=== PATIENT | female | born 1945 | race Caucasian/White ===

== ENCOUNTER → 2016-05-31 | Outpatient (CLI) | payer OTHER ==
[2016-05-31 16:02] LABS: ANION GAP 5 MEQ/L (8-16); BLOOD UREA NITROGEN 18 MG/DL (7-18); CALCIUM LEVEL 8.5 MG/DL (8.8-10.2); CARBON DIOXIDE LEVEL 28 MEQ/L (21-32); CHLORIDE LEVEL 111 MEQ/L (98-107); CREATININE FOR GFR 0.77 MG/DL (0.55-1.02); GLOMERULAR FILTRATION RATE > 60.0 (>39); GLUCOSE, FASTING 85 MG/DL (83-110); POTASSIUM SERUM 4.4 MEQ/L (3.5-5.1); SODIUM LEVEL 144 MEQ/L (136-145)
== END ==
LOC: M LAB 15:07
PROVIDERS: ATTEND Physician Assistant
DX: G35 Multiple sclerosis (principal)

== ENCOUNTER → 2016-06-02 | Outpatient (CLI) | payer OTHER ==
--- NOTE | 2016-06-05 05:43 | REP ---
MRI BRAIN WITHOUT AND WITH CONTRAST: HISTORY: Multiple sclerosis. CONTRAST: ProHance 16 mL. Areas of increased signal intensity on T2-weighted images are present in the periventricular and subcortical white matter and bobby. There is no intraparenchymal hemorrhage, infarct, mass or midline shift. There is no abnormal enhancement. The ventricular system is normal in appearance. The cortical sulci are dilated consistent with minimal volume loss. There is no extracerebral collection. The sinuses are clear. IMPRESSION: There are areas of increased signal intensity in the periventricular and subcortical white matter. This most likely represents small vessel ischemic disease, however, the possibility of atypical demyelinating disease can not be excluded. Signed by Seamus Mancia MD 06/05/2016 08:24 A
--- NOTE | 2016-06-05 05:53 | REP ---
MRI CERVICAL SPINE WITHOUT AND WITH CONTRAST: HISTORY: Multiple sclerosis. CONTRAST: ProHance 16 mL. A small central disc protrusion is present at the C3-4 level. There is minimal effacement of the thecal sac without spinal cord compression. Bilateral uncinate process hypertrophy is present. This produces minimal narrowing of the C3 neural foramina. A disc bugle with associated osteophyte formation is present at the C4-5 level. There is moderate effacement of the thecal sac without spinal cord compression. Bilateral uncinate process hypertrophy is present. This produces moderate narrowing of the C4 neural foramina. A disc bulge with associated osteophyte formation is present at the C5-6 level. There is minimal spinal cord compression. Bilateral uncinate process hypertrophy is present. This produces moderate narrowing of the C5 neural foramina. A disc bulge with associated osteophyte formation is present at the C6-7 level. There is minimal effacement of the thecal sac without spinal cord compression. Bilateral uncinate process hypertrophy is present. This produces moderate narrowing of the C6 neural foramina. A disc bulge is present at the T2-3 level. There is minimal effacement of the thecal sac without spinal cord compression. The neural foramina are patent on sagittal images. There is no other disc bulge or herniation. The remaining neural foramina are patent. The spinal cord is normal in signal intensity. There is no intradural extramedullary lesion. There is no abnormal enhancement. The C4-5 through C6-7 intervertebral discs are decreased in height consistent with disc degeneration. A 1.5 cm focus of increased signal intensity on T2-weighted images is present in the right thyroid lobe. This most likely represents a cyst. IMPRESSION: 1. There is cervical spondylosis at the C3-4 through C6-7 levels most significant at the C5-6 level where there is minimal spinal cord compression. 2. There is a 1.5 cm focus of increased signal intensity in the right thyroid lobe. This most likely represents a cyst. Ultrasound may be helpful for further evaluation. Signed by Seamus Mancia MD 06/05/2016 08:24 A
== END ==
LOC: M RAD 15:07
PROVIDERS: ATTEND Physician Assistant
DX: G35 Multiple sclerosis (principal); M43.02 Spondylolysis, cervical region
CPT/HCPCS: 70553; 72156; A9576

== ENCOUNTER → 2016-06-12 | Outpatient (CLI) | payer OTHER ==
--- NOTE | 2016-06-12 13:59 | REP ---
MRI THORACIC SPINE WITHOUT AND WITH CONTRAST: HISTORY: Multiple sclerosis. CONTRAST: ProHance 18 mL. A small central disc protrusion is present at the T5-6 level. There is minimal effacement of the thecal sac without spinal cord compression. The T5 neural foramina are patent. A small central disc protrusion is present at the T6-7 level. There is minimal effacement of the thecal sac without spinal cord compression. The T6 neural foramina are patent. A small central disc protrusion is present at the T7-8 level. There is minimal effacement of the thecal sac without spinal cord compression. The T7 neural foramina are patent. A small central disc protrusion is present at the T8-9 level. There is minimal effacement of the thecal sac without spinal cord compression. The T8 neural foramina are patent. A disc bulge is present at the T12-L1 level. There is minimal effacement of the thecal sac without spinal cord compression. The T12 neural foramina are patent. There is no other disc bulge or herniation. The remaining neural foramina are patent. The spinal cord is normal in signal intensity. There is no intradural extramedullary lesion. Nerve root sleeve diverticula or perineural cysts are present in the mid and lower thoracic spine. There is no abnormal enhancement. Increased signal intensity on T2-weighted images is present in the endplates of several mid and lower thoracic vertebral bodies. This represents degenerative change. IMPRESSION: 1. Small disc protrusions at the T5-6 through T8-9 levels without spinal cord compression. 2. Disc bulge at the T12-L1 level without spinal cord compression. Signed by Seamus Mancia MD 06/12/2016 02:01 P
--- NOTE | 2016-06-12 14:19 | REP ---
MR LUMBAR SPINE WITHOUT AND WITH CONTRAST: HISTORY: Multiple sclerosis. Contrast: ProHance 18 mL. Decreased signal intensity on T2-weighted images is present in the lumbar intervertebral discs. The discs are decreased in height. These findings are consistent with disc degeneration. There is no disc bulge or herniation at the L1-2 level. The L1 nerves exit the neural foramina without compression. A diffuse disc bulge and small right paracentral disc protrusion are present at the L2-3 level. There is minimal compression of the thecal sac. There is hypertrophy of the posterior articulating facets. The L2 nerves exit the neural foramina without compression. A diffuse disc bulge is present at the L3-4 level. There is hypertrophy of the ligamenta flava and posterior articulating facets. These findings produce minimal central canal stenosis. The L3 nerves exit the neural foramina without compression. A diffuse disc bulge with associated osteophyte formation is present at the L4-5 level. There is hypertrophy of the ligamenta flava and posterior articulating facets. These findings produce mild central canal stenosis. There is compression of the left L4 nerve in the neural foramen. The right L4 nerve exits the neural foramen without compression. A diffuse disc bulge is present at the L5-S1. This abuts the thecal sac and S1 nerves. There is hypertrophy of the posterior articulating facets. The L5 nerves exit the neural foramina without compression. There is partial sacralization of the L5 vertebral body. The conus medullaris is normal in appearance terminating at the level of the T12-L1 intervertebral disc. Normal signal intensity is present in the lumbar vertebral bodies. IMPRESSION: 1. Diffuse disc bulge and small right paracentral disc protrusion at the L2-3 level with minimal thecal sac compression. 2. Minimal central canal stenosis at the L3-4 level secondary to disc bulge , ligamentous and facet hypertrophy. 3. Mild central canal stenosis at the L4-5 level secondary to disc bulge ligamentous and facet hypertrophy and osteophyte formation. There is compression of the left L4 nerve in the neural foramen. 4. Diffuse disc bulge at the L5-S1 level. This abuts the thecal sac and S1 nerves. Signed by Seamus Mancia MD 06/12/2016 02:23 P
== END ==
LOC: M RAD 10:10
PROVIDERS: ATTEND Physician Assistant
DX: G35 Multiple sclerosis (principal)
CPT/HCPCS: 72157; 72158; A9576

== ENCOUNTER → 2018-02-07 | Outpatient (CLI) | payer OTHER | LOC: M WHC 08:16 | DX: Z12.31 Encounter for screening mammogram for malignant neoplasm of breast (principal) | CPT/HCPCS: 77067 ==